=== PATIENT | male | born 1930 | race African-American/Black ===

== ENCOUNTER → 2017-04-25 | Outpatient (CLI) | payer MEDICARE ==
[~2017-04-25] MED LIST: MECLIZINE HCL25 M2 PO; METFORMIN HCL500 MG PO; SIMVASTATIN40 MG PO; TAMSULOSIN HCL0.4 MG PO; VALSARTAN-HCTZ1 EAC1 PO
[2017-04-25 10:24] LABS: BASO # 0.1 10*3/uL (0.0-0.1); BASO % 1.1 % (0.0-1.0); EOS # 0.2 10*3/uL (0.0-0.4); EOS % 2.6 % (1.0-4.0); HEMATOCRIT 44.5 % (42.0-52.0); HEMOGLOBIN 13.9 g/dl (14.0-18.0); LYMPH # 3.1 10*3/uL (1.3-4.4); LYMPH % 50.7 % (27.0-41.0); MEAN CELL VOLUME 94.5 fl (80.0-94.0); MEAN CORPUSCULAR HGB 29.5 pg (27.0-31.0); MEAN CORPUSCULAR HGB CONC 31.2 g/dl (33.0-37.0); MEAN PLATELET VOLUME 10.5 fl (9.6-12.3); MONO # 0.5 10*3/uL (0.1-1.0); MONO % 8.2 % (3.0-9.0); NEUT # 2.3 10*3/uL (2.3-7.9); NEUT % 37.2 % (47.0-73.0); PLATELET COUNT AUTOMATED 280 10*3/uL (130-400); RED BLOOD COUNT 4.71 10*6/uL (4.50-5.90); RED CELL DISTRI WIDTH 14.2 % (0-14.5); WHITE BLOOD COUNT 6.1 10*3/uL (4.8-10.8)
[2017-04-25 10:34] LABS: ALBUMIN 3.3 gm/dl (3.1-4.5); ALKALINE PHOSPHATASE 67 U/L (45-117); BUN 12 mg/dl (7-24); CHLORIDE 105 mmol/L (98-107); CHOLESTEROL 211 mg/dL (<200); CREATININE 1.34 mg/dL (0.70-1.30); FREE T4 0.94 ng/dl (0.76-1.46); HDL CHOLESTEROL 52 mg/dl (40-60); LDL CHOLESTEROL 134 mg/dL (9-159); POTASSIUM 3.8 mmol/L (3.5-5.1); SGOT/AST 30 IU/L (3-35); SGPT/ALT 35 U/L (12-78); SODIUM 142 mmol/L (136-145); TOTAL PROTEIN 7.7 gm/dL (6.4-8.2); TRIGLYCERIDES 125 mg/dl (<150); VLDL CHOLESTEROL 25 mg/dL (6-40)
== END | disposition home or self-care (01) ==
LOC: CARD 09:30 → LAB 09:37
PROVIDERS: Internal Medicine
DX: Z12.5 Encounter for screening for malignant neoplasm of prostate (principal); I08.0 Rheumatic disorders of both mitral and aortic valves; E78.5 Hyperlipidemia, unspecified; E11.39 Type 2 diabetes mellitus with other diabetic ophthalmic complication; E55.9 Vitamin D deficiency, unspecified; I10 Essential (primary) hypertension; N40.0 Benign prostatic hyperplasia without lower urinary tract symptoms

== ENCOUNTER → 2017-12-18 | Outpatient (CLI) | payer MEDICARE ==
[2017-12-18 13:19] LABS: CREATININE 1.43 mg/dL (0.70-1.30); FREE T4 0.94 ng/dl (0.76-1.46)
[2017-12-18 13:25] LABS: THYROID STIM HORMONE (HS) 2.19 uIU/ml (0.358-4.75)
== END | disposition home or self-care (01) ==
LOC: LAB 11:51
PROVIDERS: Internal Medicine
DX: I10 Essential (primary) hypertension (principal); E11.29 Type 2 diabetes mellitus with other diabetic kidney complication

== ENCOUNTER → 2018-07-07 | Outpatient (CLI) | payer MEDICARE ==
[~2018-07-07] MED LIST changes: +CEPHALEXIN500 M1 PO; +HYZAAR 50-12.51 EACH PO; +KEFLEX500 M1 PO; +LIPITOR20 MG PO; +NORVASC5 MG PO
== END ==
LOC: WOUNDCARE 01:31
DX: S21.30 Unspecified open wound of front wall of thorax with penetration into thoracic cavity (principal); L02.213 Cutaneous abscess of chest wall; E11.9 Type 2 diabetes mellitus without complications; I10 Essential (primary) hypertension; E78.5 Hyperlipidemia, unspecified; X58.XXXD Exposure to other specified factors, subsequent encounter

== ENCOUNTER → 2018-07-14 | Outpatient (CLI) | payer MEDICARE | END | disposition home or self-care (01) | LOC: WOUNDCARE 04:25 | DX: S21.30 Unspecified open wound of front wall of thorax with penetration into thoracic cavity (principal); E11.9 Type 2 diabetes mellitus without complications; I10 Essential (primary) hypertension; E78.5 Hyperlipidemia, unspecified; X58.XXXD Exposure to other specified factors, subsequent encounter ==

== ENCOUNTER → 2018-07-21 | Outpatient (CLI) | payer MEDICARE | END | disposition home or self-care (01) | LOC: WOUNDCARE 03:12 | DX: S21.30 Unspecified open wound of front wall of thorax with penetration into thoracic cavity (principal); L02.213 Cutaneous abscess of chest wall; L92.8 Other granulomatous disorders of the skin and subcutaneous tissue; E11.9 Type 2 diabetes mellitus without complications; I10 Essential (primary) hypertension; E78.5 Hyperlipidemia, unspecified; X58.XXXD Exposure to other specified factors, subsequent encounter ==

== ENCOUNTER → 2018-07-28 | Outpatient (CLI) | payer MEDICARE | END | disposition home or self-care (01) | LOC: WOUNDCARE 04:56 | DX: L02.213 Cutaneous abscess of chest wall (principal); E11.9 Type 2 diabetes mellitus without complications; I10 Essential (primary) hypertension; E78.5 Hyperlipidemia, unspecified ==

== ENCOUNTER → 2019-03-10 | Outpatient (CLI) | payer MEDICARE ==
[2019-03-10 13:46] LABS: HEMATOCRIT 37.3 % (42.0-52.0); HEMOGLOBIN 11.8 g/dl (14.0-18.0); MEAN CELL VOLUME 94.9 fl (80.0-94.0); MEAN CORPUSCULAR HGB CONC 31.6 g/dl (33.0-37.0); MEAN PLATELET VOLUME 9.6 fl (9.6-12.3); RED BLOOD COUNT 3.93 10*6/uL (4.50-5.90); RED CELL DISTRI WIDTH 13.6 % (0-14.5); WHITE BLOOD COUNT 4.4 10*3/uL (4.8-10.8)
[2019-03-10 14:16] LABS: CREATININE 1.89 mg/dL (0.70-1.30); FREE T4 1.02 ng/dl (0.76-1.46); POTASSIUM 3.8 mmol/L (3.5-5.1)
[2019-03-10 14:22] LABS: THYROID STIM HORMONE (HS) 3.04 uIU/ml (0.358-4.75)
[2019-03-10 14:24] LABS: FERRITIN 28.3 ng/mL (22.0-322.0)
== END | disposition home or self-care (01) ==
LOC: LAB 13:11
PROVIDERS: Internal Medicine
DX: E11.9 Type 2 diabetes mellitus without complications (principal); D64.9 Anemia, unspecified; R26.89 Other abnormalities of gait and mobility

== ENCOUNTER → 2019-04-13 | Outpatient (CLI) | payer MEDICARE ==
[2019-04-13 14:56] LABS: BILIRUBIN NEGATIVE (NEGATIVE); BLOOD 1+ (NEGATIVE); CLARITY CLEAR (CLEAR); COLOR YELLOW (YELLOW); GLUCOSE NEGATIVE (NEGATIVE); KETONE NEGATIVE (NEGATIVE); LEUKO ESTERASE NEGATIVE (NEGATIVE); NITRITE NEGATIVE (NEGATIVE); SPECIFIC GRAVITY >= 1.030 (1.005-1.030); UROBILINOGEN 0.2 E.U./dl (0.2-1.0)
[2019-04-13 15:21] LABS: MUCOUS 1+
[2019-04-13 15:24] LABS: ALBUMIN 3.4 gm/dl (3.1-4.5); ALKALINE PHOSPHATASE 58 U/L (45-117); BUN 12 mg/dl (7-24); CHLORIDE 109 mmol/L (98-107); CREATININE 1.24 mg/dL (0.70-1.30); PHOSPHOROUS 2.4 mg/dL (2.5-4.9); POTASSIUM 3.6 mmol/L (3.5-5.1); SGOT/AST 26 IU/L (3-35); SGPT/ALT 24 U/L (12-78); SODIUM 142 mmol/L (136-145); TOTAL PROTEIN 7.6 gm/dL (6.4-8.2)
[2019-04-14 17:58] LABS: CREATININE,URINE 264.7 mg/dL (Not Estab.); MICRO ALBUMIN/CRE RATIO 11.4 (0.0-30.0)
== END | disposition home or self-care (01) ==
LOC: LAB 14:17
PROVIDERS: Internal Medicine Nephrology
DX: N18.4 Chronic kidney disease, stage 4 (severe) (principal)

== ENCOUNTER → 2019-04-29 | Outpatient (CLI) | payer MEDICARE ==
[2019-04-29 14:13] LABS: BILIRUBIN NEGATIVE (NEGATIVE); BLOOD TRACE-INTACT (NEGATIVE); CLARITY SL CLOUDY (CLEAR); COLOR YELLOW (YELLOW); GLUCOSE NEGATIVE (NEGATIVE); KETONE NEGATIVE (NEGATIVE); LEUKO ESTERASE NEGATIVE (NEGATIVE); NITRITE NEGATIVE (NEGATIVE); PH 5.5 (5.0-9.0); SPECIFIC GRAVITY 1.025 (1.005-1.030); UROBILINOGEN 0.2 E.U./dl (0.2-1.0)
[2019-04-29 14:27] LABS: ALBUMIN 3.7 gm/dl (3.1-4.5); ALKALINE PHOSPHATASE 60 U/L (45-117); BUN 12 mg/dl (7-24); CHLORIDE 108 mmol/L (98-107); CREATININE 1.13 mg/dL (0.70-1.30); PHOSPHOROUS 2.5 mg/dL (2.5-4.9); POTASSIUM 3.4 mmol/L (3.5-5.1); SGOT/AST 22 IU/L (3-35); SGPT/ALT 22 U/L (12-78); SODIUM 140 mmol/L (136-145); TOTAL PROTEIN 7.8 gm/dL (6.4-8.2)
[2019-04-29 14:28] LABS: INTERNATIONAL NORM RATIO 0.9 (2.0-3.5)
[2019-04-29 17:04] LABS: BACTERIA 1+
[2019-04-30 12:07] LABS: CREATININE,URINE 154.9 mg/dL (Not Estab.); MICRO ALBUMIN/CRE RATIO 30.5 (0.0-30.0)
== END | disposition home or self-care (01) ==
LOC: LAB 00:30 → US 13:00
PROVIDERS: Internal Medicine Nephrology
DX: N18.4 Chronic kidney disease, stage 4 (severe) (principal)

== ENCOUNTER → 2019-05-24 | Outpatient (CLI) | payer MEDICARE ==
[2019-05-24 15:07] LABS: ALBUMIN 3.2 gm/dl (3.1-4.5); ALKALINE PHOSPHATASE 63 U/L (45-117); BUN 16 mg/dl (7-24); CHLORIDE 107 mmol/L (98-107); CREATININE 1.27 mg/dL (0.70-1.30); POTASSIUM 3.5 mmol/L (3.5-5.1); SGOT/AST 23 IU/L (3-35); SGPT/ALT 25 U/L (12-78); SODIUM 143 mmol/L (136-145); TOTAL PROTEIN 7.7 gm/dL (6.4-8.2)
== END | disposition home or self-care (01) ==
LOC: LAB 14:02
PROVIDERS: Internal Medicine
DX: E11.29 Type 2 diabetes mellitus with other diabetic kidney complication (principal)

== ENCOUNTER → 2019-06-14 | Outpatient (CLI) | payer MEDICARE | END | disposition home or self-care (01) | LOC: US 14:10 | DX: N28.1 Cyst of kidney, acquired (principal); N30.01 Acute cystitis with hematuria ==

== ENCOUNTER 2020-02-13 19:52 | Inpatient (IN) | payer MEDICARE ==
[~2020-02-13] VITALS: Ht 160 cm; Wt 57.3 kg
[2020-02-13 19:58] VITALS: BP 155/68
[2020-02-13 20:50] VITALS: BP 116/67
[2020-02-13 20:54] LABS: MEAN CELL VOLUME 91.6 fl (80.0-94.0); MEAN CORPUSCULAR HGB 28.5 pg (27.0-31.0); MEAN CORPUSCULAR HGB CONC 31.1 g/dl (33.0-37.0); MEAN PLATELET VOLUME 10.7 fl (9.6-12.3); PLATELET COUNT AUTOMATED 182 10*3/uL (130-400); RED BLOOD COUNT 4.91 10*6/uL (4.50-5.90); RED CELL DISTRI WIDTH 15.4 % (0-14.5); WHITE BLOOD COUNT 3.7 10*3/uL (4.8-10.8)
[2020-02-13 21:12] LABS: ALBUMIN 3.1 gm/dl (3.1-4.5); ALKALINE PHOSPHATASE 57 U/L (45-117); BUN 31 mg/dl (7-24); CHLORIDE 106 mmol/L (98-107); CREATININE 1.34 mg/dL (0.70-1.30); POTASSIUM 3.9 mmol/L (3.5-5.1); SGOT/AST 63 IU/L (3-35); SGPT/ALT 46 U/L (12-78); SODIUM 138 mmol/L (136-145); TOTAL PROTEIN 7.6 gm/dL (6.4-8.2)
[2020-02-13 21:14] LABS: TROPONIN I 0.074 ng/ml (<0.045)
[2020-02-13 21:15] LABS: ATYPICAL LYMPHS 1 % (0-0); PLATELET SUFFICIENCY NORMAL (NORMAL); TOTAL CELLS COUNTED 100 #CELLS
[2020-02-13 21:51] VITALS: BP 121/72
[2020-02-13 23:30] LABS: BILIRUBIN NEGATIVE (NEGATIVE); BLOOD 1+ (NEGATIVE); CLARITY CLEAR (CLEAR); COLOR YELLOW (YELLOW); GLUCOSE NEGATIVE (NEGATIVE); KETONE 1+ (NEGATIVE); SPECIFIC GRAVITY 1.025 (1.005-1.030)
[2020-02-13 23:31] LABS: LEUKO ESTERASE NEGATIVE (NEGATIVE); NITRITE NEGATIVE (NEGATIVE); UROBILINOGEN 0.2 E.U./dl (0.2-1.0)
[2020-02-13 23:35] LABS: BACTERIA 2+
[2020-02-13 23:36] LABS: MUCOUS TRACE
[2020-02-14 00:24] VITALS: BP 121/54
[2020-02-14 00:53] VITALS: BP 136/74
[2020-02-14 05:01] LABS: BUN 29 mg/dl (7-24); CHLORIDE 107 mmol/L (98-107); CREATININE 1.23 mg/dL (0.70-1.30); POTASSIUM 4.2 mmol/L (3.5-5.1); SODIUM 139 mmol/L (136-145)
[2020-02-14 08:00] VITALS: BP 107/52
[2020-02-14 12:00] VITALS: BP 101/51
[2020-02-14 16:00] VITALS: BP 135/71
[2020-02-14 20:00] VITALS: BP 152/82
[2020-02-15] VITALS: BP 116/66
[2020-02-15 07:37] LABS: HEMATOCRIT 44.9 % (42.0-52.0); MEAN CELL VOLUME 92.4 fl (80.0-94.0); MEAN CORPUSCULAR HGB 28.2 pg (27.0-31.0); MEAN CORPUSCULAR HGB CONC 30.5 g/dl (33.0-37.0); MEAN PLATELET VOLUME 11.3 fl (9.6-12.3); PLATELET COUNT AUTOMATED 178 10*3/uL (130-400); RED BLOOD COUNT 4.86 10*6/uL (4.50-5.90); RED CELL DISTRI WIDTH 15.5 % (0-14.5)
[2020-02-15 08:00] VITALS: BP 120/60
[2020-02-15 08:06] LABS: CHLORIDE 107 mmol/L (98-107); CREATININE 1.05 mg/dL (0.70-1.30); POTASSIUM 4.7 mmol/L (3.5-5.1); SODIUM 139 mmol/L (136-145)
[2020-02-15 08:11] LABS: TOTAL CELLS COUNTED 100 #CELLS; VITAMIN D, 25-HYDROXY 61.9 ng/mL (30-100)
[2020-02-15 08:12] LABS: PLATELET SUFFICIENCY NORMAL (NORMAL)
[2020-02-15 08:14] LABS: BUN 17 mg/dl (7-24)
[2020-02-15 16:00] VITALS: BP 134/75
[2020-02-15 20:00] VITALS: BP 128/65
[2020-02-16] VITALS: BP 146/84
[2020-02-16 08:00] VITALS: BP 126/69
[2020-02-16 08:32] LABS: HEMATOCRIT 43.6 % (42.0-52.0); MEAN CELL VOLUME 90.5 fl (80.0-94.0); MEAN PLATELET VOLUME 10.9 fl (9.6-12.3); PLATELET COUNT AUTOMATED 189 10*3/uL (130-400); RED BLOOD COUNT 4.82 10*6/uL (4.50-5.90); RED CELL DISTRI WIDTH 15.7 % (0-14.5); WHITE BLOOD COUNT 4.1 10*3/uL (4.8-10.8)
[2020-02-16 09:01] LABS: BUN 10 mg/dl (7-24); CHLORIDE 109 mmol/L (98-107); SODIUM 141 mmol/L (136-145)
[2020-02-16 09:22] LABS: ATYPICAL LYMPHS 1 % (0-0); TOTAL CELLS COUNTED 100 #CELLS
[2020-02-16 09:23] LABS: BURR CELLS FEW; PLATELET SUFFICIENCY NORMAL (NORMAL)
[2020-02-16] MEDS ORDERED: PRINIVIL10 MG PO (09:39)
[2020-02-16 12:00] VITALS: BP 121/58
[2020-02-16 16:00] VITALS: BP 109/85
[2020-02-16] MEDS ORDERED: ASPIRIN ADULT L81 M1 PO (16:15)
== END 2020-02-16 18:00 | disposition home or self-care (01) | DRG 682 ==
LOC: ED 19:52 → 5E 23:02 → EDHOLD 23:02 → 5E 23:33
PROVIDERS: Emergency Medicine; Internal Medicine; Internal Medicine Nephrology; ADMIT Internal Medicine
DX: N17.9 Acute kidney failure, unspecified (principal); I21.A1 Myocardial infarction type 2; I95.1 Orthostatic hypotension; E86.0 Dehydration; R31.29 Other microscopic hematuria; N18.3 Chronic kidney disease, stage 3 (moderate); I12.9 Hypertensive chronic kidney disease with stage 1 through stage 4 chronic kidney disease, or unspecified chronic kidney disease; E83.39 Other disorders of phosphorus metabolism; R63.4 Abnormal weight loss; E11.22 Type 2 diabetes mellitus with diabetic chronic kidney disease; E78.5 Hyperlipidemia, unspecified; N40.0 Benign prostatic hyperplasia without lower urinary tract symptoms; J44.9 Chronic obstructive pulmonary disease, unspecified; Z82.3 Family history of stroke; Z79.84 Long term (current) use of oral hypoglycemic drugs; Z79.899 Other long term (current) drug therapy; Z68.22 Body mass index [BMI] 22.0-22.9, adult

== ENCOUNTER 2020-02-18 17:37 | Emergency (ER) | payer MEDICARE ==
[~2020-02-18] VITALS: Wt 58.4 kg
[~2020-02-18 17:37] MED LIST changes: +ASPIRIN ADULT L81 M1 PO; +PRINIVIL10 MG PO
[2020-02-18 18:20] LABS: BASO % 0.4 % (0.0-1.0); HEMATOCRIT 42.3 % (42.0-52.0); LYMPH # 0.9 10*3/uL (1.3-4.4); MEAN CELL VOLUME 89.4 fl (80.0-94.0); MEAN CORPUSCULAR HGB 27.9 pg (27.0-31.0); MEAN CORPUSCULAR HGB CONC 31.2 g/dl (33.0-37.0); MEAN PLATELET VOLUME 10.7 fl (9.6-12.3); MONO # 0.4 10*3/uL (0.1-1.0); MONO % 6.4 % (3.0-9.0); NEUT # 4.4 10*3/uL (2.3-7.9); PLATELET COUNT AUTOMATED 217 10*3/uL (130-400); RED BLOOD COUNT 4.73 10*6/uL (4.50-5.90); RED CELL DISTRI WIDTH 15.5 % (0-14.5); WHITE BLOOD COUNT 5.7 10*3/uL (4.8-10.8)
[2020-02-18 18:35] LABS: ALBUMIN 2.7 gm/dl (3.1-4.5); ALKALINE PHOSPHATASE 56 U/L (45-117); BUN 18 mg/dl (7-24); CHLORIDE 108 mmol/L (98-107); CREATININE 1.16 mg/dL (0.70-1.30); LIPASE 109 U/L (73-393); POTASSIUM 3.7 mmol/L (3.5-5.1); SGOT/AST 31 IU/L (3-35); SGPT/ALT 27 U/L (12-78); SODIUM 140 mmol/L (136-145); TOTAL PROTEIN 7.4 gm/dL (6.4-8.2)
== END 2020-02-18 20:25 | disposition home or self-care (01) ==
LOC: ED 17:37
PROVIDERS: Nurse Practitioner Family
DX: R63.0 Anorexia (principal); I12.9 Hypertensive chronic kidney disease with stage 1 through stage 4 chronic kidney disease, or unspecified chronic kidney disease; E11.22 Type 2 diabetes mellitus with diabetic chronic kidney disease; N18.3 Chronic kidney disease, stage 3 (moderate); E78.5 Hyperlipidemia, unspecified; Z20.828 Contact with and (suspected) exposure to other viral communicable diseases; Z79.82 Long term (current) use of aspirin; Z79.899 Other long term (current) drug therapy

== ENCOUNTER 2020-02-22 12:28 | Inpatient (IN) | payer MEDICARE ==
[~2020-02-22] VITALS: Ht 167.6 cm; Wt 62.2 kg
[2020-02-22 12:28] VITALS: BP 125/61
--- NOTE | 2020-02-22 14:13 | NUR ---
LAB UNABLE TO OBTAIN BLOOD AT THIS TIME.
--- NOTE | 2020-02-22 16:20 | NUR ---
RESTING WITH EYES CLOSED. RESPS ARE EASY AND NON LABORED. CALL LIGHT IN REACH.
[2020-02-22 17:40] VITALS: BP 128/56
--- NOTE | 2020-02-22 17:40 | NUR ---
A 89, admitted to , under the services of JUDE Bello DO with a diagnosis of +COVID 19. Chief complaint is LOSS OF APPETITE. Patient arrived via ambulance from ER. Monitor applied. Initial assessment completed. Vital signs taken and recorded. JUDE BELLO DO notified of admission to the unit. Orders received. See assessment for past medical history, medications and allergies. Patient and/or family oriented to unit. [facility] visitation policy reviewed. Clothing/patient valuable form completed. STEVO KIRKPATRICK
[2020-02-22 18:04] LABS: ACT PARTIAL THROMBO TIME 23.5 SECONDS (20.0-32.1); INTERNATIONAL NORM RATIO 1.1 (2.0-3.5)
[2020-02-22 18:09] LABS: ALBUMIN 2.6 gm/dl (3.1-4.5); ALKALINE PHOSPHATASE 55 U/L (45-117); BUN 15 mg/dl (7-24); CHLORIDE 109 mmol/L (98-107); CREATININE 1.04 mg/dL (0.70-1.30); LIPASE 139 U/L (73-393); POTASSIUM 3.5 mmol/L (3.5-5.1); SGOT/AST 30 IU/L (3-35); SGPT/ALT 26 U/L (12-78); SODIUM 140 mmol/L (136-145)
--- NOTE | 2020-02-22 18:25 | NUR ---
NOTIFIED DR SANTOS OF NEW CONSULT FOR POSITIVE COVID 19.
--- NOTE | 2020-02-22 18:42 | NUR ---
DR CISNEROS NOTIFIED OF CRITICAL TROPONIN 0.100.
--- NOTE | 2020-02-22 18:49 | NUR ---
NOTIFIED DR PATEL OF NEW CONSULT FOR COVID 19 POSITIVE.
[2020-02-22] MEDS ORDERED: VITAMIN D350 MC1 PO (19:03)
[2020-02-22] MEDS ORDERED: LISINOPRIL10 M1 PO (19:04)
[2020-02-22] MEDS ORDERED: METFORMIN HYDR500 MG PO (19:05)
--- NOTE | 2020-02-22 19:09 | NUR ---
NOTIFIED DR BAUGH THAT WE WERE UNABLE TO OBTAIN LABS FOLLOWING ATTEMPTS BY MYSELF, KRYSTINA Seymour RN AND LAB.
[2020-02-22 19:19] LABS: ABG BASE EXCESS 0.4 mmol/L (-2.0-2.0); ARTERIAL BLOOD GAS PH 7.419 (7.35-7.45)
--- NOTE | 2020-02-22 19:25 | NUR ---
REPORT RECEIVED FROM JENNIFER BARBA. PT LYING IN BED. CALL LIGHT IN REACH
--- NOTE | 2020-02-22 19:37 | NUR ---
DR SANTOS NOTIFIED OF ABG RESULTS.
--- NOTE | 2020-02-22 19:52 | NUR ---
SPOKE WITH DR BAUGH WHO REQUESTED RN TO GO BACK TO ROOM AND ATTEMPT TO PUT PHONE TO PT EAR. EXPLAINED PT WAS EXTREMELY HARD OF HEARING. AGAIN DISCUSSED PLACEMENT OF LINE OF SOME SORT FOR ACCESS TO LAB DRAWS AND IV MEDS.THIS RN NOTIFIED RELIEF WORKER JAMESON PAGAN TO CALL DR BAUGH FROM PT ROOM.
[2020-02-22 20:00] VITALS: BP 117/59
--- NOTE | 2020-02-22 20:00 | NUR ---
PT STATES, "I CANT TALK ON PHONE AT THIS TIME." WILL LET DR. BAUGH KNOW.
[2020-02-22 20:44] LABS: HEMATOCRIT 43.2 % (42.0-52.0); MEAN CELL VOLUME 93.3 fl (80.0-94.0); MEAN CORPUSCULAR HGB 28.1 pg (27.0-31.0); MEAN CORPUSCULAR HGB CONC 30.1 g/dl (33.0-37.0); MEAN PLATELET VOLUME 10.1 fl (9.6-12.3); PLATELET COUNT AUTOMATED 277 10*3/uL (130-400); RED BLOOD COUNT 4.63 10*6/uL (4.50-5.90); RED CELL DISTRI WIDTH 15.8 % (0-14.5); WHITE BLOOD COUNT 3.2 10*3/uL (4.8-10.8)
[2020-02-22 21:05] LABS: ATYPICAL LYMPHS 8 % (0-0); BASOPHILS 1 % (0-1); TOTAL CELLS COUNTED 100 #CELLS
[2020-02-22 21:06] LABS: BURR CELLS MODERATE; PLATELET SUFFICIENCY NORMAL (NORMAL)
--- NOTE | 2020-02-22 21:08 | NUR ---
DR. BAUGH NOTIFIED OF CRITICAL TROPONIN OF 0.101. NO NEW ORDERS AT THIS TIME.
[2020-02-22 21:14] LABS: CPK 112 U/L (39-308); LDH 208 U/L (87-241)
--- NOTE | 2020-02-22 23:42 | NUR ---
NOTIFIED OF CRITICAL TROPONIN OF 0.086. NO NEW ORDERS AT THIS TIME.
[2020-02-23] VITALS (7 sets, daily range): BP systolic 94–120; BP diastolic 47–67
--- NOTE | 2020-02-23 00:10 | NUR ---
DR. BAUGH NOTIFIED OF HR 48 ON MONITOR. BACK IN 50'S. ORDERED TO TAKE BP AND CALL WITH RESULTS.
--- NOTE | 2020-02-23 00:30 | NUR ---
PT BP 102/48 MANUALLY. ORDERED NS AT 100/H FOR PT. DANIELLE TO CLARIFY.
--- NOTE | 2020-02-23 01:00 | NUR ---
DR. SANTOS NOTIFIED OF PT BP AND OF HR. ORDERED TO KEEP AN EYE ON PT BP. IF DROPS LOWER, NURSE MAY GIVE 500 CC ONLY TO PT. NOT 1L.
--- NOTE | 2020-02-23 03:00 | NUR ---
PT ASLEEP AT THIS TIME. CALL LIGHT IN REACH
--- NOTE | 2020-02-23 04:20 | NUR ---
PT BP WNL AT THIS TIME
[2020-02-23 05:58] LABS: ALBUMIN 2.5 gm/dl (3.1-4.5); ALKALINE PHOSPHATASE 49 U/L (45-117); BUN 13 mg/dl (7-24); CHLORIDE 110 mmol/L (98-107); CPK 96 U/L (39-308); CREATININE 1.01 mg/dL (0.70-1.30); LDH 174 U/L (87-241); POTASSIUM 3.3 mmol/L (3.5-5.1); SGOT/AST 29 IU/L (3-35); SGPT/ALT 24 U/L (12-78); SODIUM 141 mmol/L (136-145); TOTAL PROTEIN 6.3 gm/dL (6.4-8.2)
--- NOTE | 2020-02-23 06:28 | NUR ---
PT SLEEPING AT THIS TIME. CALL LIGHT IN REACH
[2020-02-23 07:04] LABS: BASO % 0.9 % (0.0-1.0); EOS % 0.9 % (1.0-4.0); HEMATOCRIT 39.1 % (42.0-52.0); LYMPH # 1.5 10*3/uL (1.3-4.4); LYMPH % 43.8 % (27.0-41.0); MEAN CELL VOLUME 90.3 fl (80.0-94.0); MEAN CORPUSCULAR HGB 28.2 pg (27.0-31.0); MEAN CORPUSCULAR HGB CONC 31.2 g/dl (33.0-37.0); MEAN PLATELET VOLUME 10.5 fl (9.6-12.3); MONO # 0.4 10*3/uL (0.1-1.0); MONO % 10.7 % (3.0-9.0); NEUT # 1.5 10*3/uL (2.3-7.9); NEUT % 43.1 % (47.0-73.0); PLATELET COUNT AUTOMATED 298 10*3/uL (130-400); RED BLOOD COUNT 4.33 10*6/uL (4.50-5.90); RED CELL DISTRI WIDTH 15.5 % (0-14.5); WHITE BLOOD COUNT 3.4 10*3/uL (4.8-10.8)
[2020-02-23 08:47] LABS: ABG BASE EXCESS 0.5 mmol/L (-2.0-2.0); ARTERIAL BLOOD GAS PH 7.435 (7.35-7.45)
--- NOTE | 2020-02-23 19:34 | NUR ---
24 HR chart check completed.
--- NOTE | 2020-02-23 20:36 | NUR ---
Patient sitting up in chair, denies any needs at this time. Patient hoping to go home soon. Was given snacks, he still has loss of appetite, but is eating a little. Patient left with call light in reach.
[2020-02-24] VITALS: BP 107/48
[2020-02-24 06:09] LABS: HEP B CORE AB, IGM Negative (Negative); HEPATITIS B SURFACE AG Negative (Negative); HEPATITIS C AB <0.1 (0.0-0.9); HEPATITIS C VIRUS ANTIBODY <0.1 s/co (0.0-0.9)
[2020-02-24 06:41] LABS: HEMATOCRIT 40.7 % (42.0-52.0); MEAN CELL VOLUME 90.2 fl (80.0-94.0); MEAN CORPUSCULAR HGB 28.6 pg (27.0-31.0); MEAN CORPUSCULAR HGB CONC 31.7 g/dl (33.0-37.0); MEAN PLATELET VOLUME 10.1 fl (9.6-12.3); PLATELET COUNT AUTOMATED 298 10*3/uL (130-400); RED BLOOD COUNT 4.51 10*6/uL (4.50-5.90); RED CELL DISTRI WIDTH 15.7 % (0-14.5); WHITE BLOOD COUNT 2.8 10*3/uL (4.8-10.8)
[2020-02-24 06:58] LABS: ALBUMIN 2.6 gm/dl (3.1-4.5); ALKALINE PHOSPHATASE 55 U/L (45-117); BUN 10 mg/dl (7-24); CHLORIDE 113 mmol/L (98-107); CREATININE 1.08 mg/dL (0.70-1.30); LDH 367 U/L (87-241); SGOT/AST 34 IU/L (3-35); SGPT/ALT 25 U/L (12-78); SODIUM 141 mmol/L (136-145); TOTAL PROTEIN 6.8 gm/dL (6.4-8.2)
[2020-02-24 06:59] LABS: CPK 128 U/L (39-308)
[2020-02-24 07:47] LABS: ATYPICAL LYMPHS 3 % (0-0); BASOPHILS 1 % (0-1); PLATELET SUFFICIENCY NORMAL (NORMAL); TOTAL CELLS COUNTED 100 #CELLS
[2020-02-24 08:00] VITALS: BP 110/53
--- NOTE | 2020-02-24 09:00 | NUR ---
case managmono talked with patient's son, he stated patient lives at home with him, son stated he usually is independent in adls and ambulation, son stated he would like his dad to return home but if he needed home health or SNF he would choose, he choose [facility] as home health company, case management will follow
[2020-02-24 10:30] LABS: ABG BASE EXCESS 0.6 mmol/L (-2.0-2.0); ARTERIAL BLOOD GAS PH 7.421 (7.35-7.45)
--- NOTE | 2020-02-24 11:15 | NUR ---
PATIENT PLACED ON BIPAP 14/, 40%. HR 105 SPO2 95%
[2020-02-24 12:00] VITALS: BP 106/50
--- NOTE | 2020-02-24 14:58 | NUR ---
[facility] WAS ASKING IF THE PATIENT WAS DISCHARGED. LABORATORY EQUIPMENT CLEANER EXPLAINED NO DISCHARGE IS ORDERED AT THIS TIME.
[2020-02-24 16:00] VITALS: BP 109/72
[2020-02-24 20:00] VITALS: BP 113/55
[2020-02-25] VITALS: BP 109/56
[2020-02-25 07:02] LABS: HEMATOCRIT 38.7 % (42.0-52.0); MEAN CELL VOLUME 89.8 fl (80.0-94.0); MEAN CORPUSCULAR HGB 28.3 pg (27.0-31.0); MEAN CORPUSCULAR HGB CONC 31.5 g/dl (33.0-37.0); MEAN PLATELET VOLUME 10.2 fl (9.6-12.3); PLATELET COUNT AUTOMATED 340 10*3/uL (130-400); RED BLOOD COUNT 4.31 10*6/uL (4.50-5.90); RED CELL DISTRI WIDTH 15.7 % (0-14.5); WHITE BLOOD COUNT 3.3 10*3/uL (4.8-10.8)
[2020-02-25 07:14] LABS: ALBUMIN 2.6 gm/dl (3.1-4.5); ALKALINE PHOSPHATASE 48 U/L (45-117); BUN 12 mg/dl (7-24); CHLORIDE 110 mmol/L (98-107); CPK 99 U/L (39-308); CREATININE 1.02 mg/dL (0.70-1.30); LDH 178 U/L (87-241); SGOT/AST 20 IU/L (3-35); SGPT/ALT 24 U/L (12-78); SODIUM 140 mmol/L (136-145); TOTAL PROTEIN 6.4 gm/dL (6.4-8.2)
[2020-02-25 08:00] VITALS: BP 110/54
[2020-02-25 08:06] LABS: ATYPICAL LYMPHS 4 % (0-0); PLATELET SUFFICIENCY NORMAL (NORMAL); TOTAL CELLS COUNTED 100 #CELLS
[2020-02-25 08:07] LABS: BURR CELLS FEW
--- NOTE | 2020-02-25 09:00 | NUR ---
patient is a possibly discharge to home today, case management will notify [phone] BEDS AT THE [facility] when patient is discharged
[2020-02-25 12:00] VITALS: BP 82/42
[2020-02-25 13:00] VITALS: BP 104/54
[2020-02-25 16:00] VITALS: BP 107/46
--- NOTE | 2020-02-25 19:30 | NUR ---
REPORT RECEIVED. PT LYING IN BED WATCHING TV. PT STATES "IM FEELING GOOD TODAY" NO S/S OF DISTRESS, CALL LIGHT IN REACH
[2020-02-25 20:00] VITALS: BP 97/55
--- NOTE | 2020-02-25 21:30 | NUR ---
PT WATCHING TV. CALL LIGHT IN REACH
[2020-02-26] VITALS: BP 120/63
--- NOTE | 2020-02-26 | NUR ---
IN TO ASSESS PT. PT EATING A SNACK AT THIS TIME. VOICES NO COMPLAINTS, CALL LIGHT IN REACH
[2020-02-26 06:43] LABS: BASO % 0.8 % (0.0-1.0); EOS % 1.1 % (1.0-4.0); HEMATOCRIT 38.1 % (42.0-52.0); LYMPH # 1.6 10*3/uL (1.3-4.4); MEAN CELL VOLUME 89.9 fl (80.0-94.0); MEAN CORPUSCULAR HGB 28.5 pg (27.0-31.0); MEAN CORPUSCULAR HGB CONC 31.8 g/dl (33.0-37.0); MEAN PLATELET VOLUME 9.9 fl (9.6-12.3); MONO # 0.5 10*3/uL (0.1-1.0); MONO % 12.6 % (3.0-9.0); NEUT # 1.4 10*3/uL (2.3-7.9); NEUT % 40.2 % (47.0-73.0); PLATELET COUNT AUTOMATED 327 10*3/uL (130-400); RED BLOOD COUNT 4.24 10*6/uL (4.50-5.90); RED CELL DISTRI WIDTH 15.8 % (0-14.5); WHITE BLOOD COUNT 3.6 10*3/uL (4.8-10.8)
[2020-02-26 07:21] LABS: ALBUMIN 2.4 gm/dl (3.1-4.5); ALKALINE PHOSPHATASE 50 U/L (45-117); BUN 12 mg/dl (7-24); CHLORIDE 109 mmol/L (98-107); CREATININE 0.99 mg/dL (0.70-1.30); LDH 168 U/L (87-241); POTASSIUM 3.7 mmol/L (3.5-5.1); SGOT/AST 18 IU/L (3-35); SGPT/ALT 24 U/L (12-78); SODIUM 140 mmol/L (136-145); TOTAL PROTEIN 6.2 gm/dL (6.4-8.2)
[2020-02-26 08:00] VITALS: BP 98/48
[2020-02-26 12:00] VITALS: BP 96/66
--- NOTE | 2020-02-26 16:25 | NUR ---
Discharge instructions reviewed with patient/family. Patient receptive and verbalizes understanding. Follow-up care arranged. Written instructions given to patient/family. STEVO KIRKPATRICK
== END 2020-02-26 16:25 | disposition home health service (06) | DRG 177 ==
LOC: ED 12:28 → 4E 15:19 → EDHOLD 15:19 → 4E 15:36
PROVIDERS: Emergency Medicine; Internal Medicine; Internal Medicine Critical Care Medicine; ADMIT Internal Medicine
DX: U07.1 COVID-19 (principal); E43 Unspecified severe protein-calorie malnutrition; I31.3 Pericardial effusion (noninflammatory); I24.8 Other forms of acute ischemic heart disease; D68.59 Other primary thrombophilia; K86.3 Pseudocyst of pancreas; R31.29 Other microscopic hematuria; I95.1 Orthostatic hypotension; E78.5 Hyperlipidemia, unspecified; N40.0 Benign prostatic hyperplasia without lower urinary tract symptoms; M47.817 Spondylosis without myelopathy or radiculopathy, lumbosacral region; E11.22 Type 2 diabetes mellitus with diabetic chronic kidney disease; I12.9 Hypertensive chronic kidney disease with stage 1 through stage 4 chronic kidney disease, or unspecified chronic kidney disease; F03.90 Unspecified dementia, unspecified severity, without behavioral disturbance, psychotic disturbance, mood disturbance, and anxiety; N18.3 Chronic kidney disease, stage 3 (moderate); D64.9 Anemia, unspecified; R70.0 Elevated erythrocyte sedimentation rate; E87.6 Hypokalemia; E87.8 Other disorders of electrolyte and fluid balance, not elsewhere classified; E83.42 Hypomagnesemia; E87.5 Hyperkalemia; E83.39 Other disorders of phosphorus metabolism; Z82.3 Family history of stroke; Z68.20 Body mass index [BMI] 20.0-20.9, adult